=== PATIENT | male | born 1995 | race American Indian/Alaskan Native ===

== ENCOUNTER 2016-11-08 06:53 | Emergency (ER) | payer SELFPAY ==
[2016-11-08 07:32] LABS: Basophils % (Auto) 0.4 % (0.0-1.8); Hematocrit 40.8 % (35.5-45.6); Hemoglobin 14.2 gm/dl (11.8-15.2); Mean Corpuscular HGB Conc 35 % (32-34); Mean Corpuscular Hemoglobin 30 pg (28-32); Mean Corpuscular Volume 85 fl (84-94); Platelet Count 220 K/mm3 (140-440); Red Blood Count 4.77 M/mm3 (3.65-5.03); Red Cell Distribution Width 13.7 % (13.2-15.2); White Blood Count 6.9 K/mm3 (4.5-11.0)
[2016-11-08 07:57] LABS: Anion Gap 16 mmol/L; BUN/Creatinine Ratio 4.44; Blood Urea Nitrogen 4 mg/dL (9-20); Calcium 9.4 mg/dL (8.4-10.2); Carbon Dioxide 26 mmol/L (22-30); Chloride 101.3 mmol/L (98-107); Glucose 105 mg/dL (75-100); Potassium 3.7 mmol/L (3.6-5.0); Sodium 140 mmol/L (137-145)
--- NOTE | 2016-11-08 10:43 | Emergency Department Report ---
ED Chest Pain HPI - General Chief Complaint: Chest Pain Stated Complaint: NOSE BLEED/CHEST PAIN Time Seen by Provider: 11/08/16 10:40 Source: EMS Mode of arrival: Stretcher Limitations: No Limitations - History of Present Illness Initial Comments: The patient is a poor historian. He stated that she is that he's had some nosebleed and coughing for the past 2 days. He told me he had nonradiating chest pain which was associated with coughing up blood. He attributed this to pollen. He states he's had symptoms for 2 days. He is currently having no chest pain and no shortness of breath. He denies recent travel. He denies leg pain or swelling. He states he took his temperature twice at home once being 101 and another time being 103. He does have a history of schizophrenia. I do not know how reliable much of this information is. He tells me that he has been out of his Edoxaban for "a minute". He currently is unemployed and states he was unable to purchase any of his medicines. Patient has a history of methamphetamine abuse. He presented to the hospital in March 2016 in atrial flutter. He was seen by Denisse Villareal. He did have cough and chest pain at that time as well. He had a WILFREDO performed which showed "severe ventricular dysfunction bilaterally and a dilated cardiomyopathy with 4 chamber dilatation. He was placed then onto Xarelto metoprolol and amiodarone. He was thought to have a nonischemic cardiomyopathy. He was obviously counseled against IV drug abuse which apparently was the route of administration for his methamphetamine. He has not followed up with Denisse Bonilla since. MD Complaint: chest pain -: hour(s) Onset: during rest Severity scale (0 -10): 3 - Related Data Home Medications Medication Instructions Recorded Confirmed Last Taken Acetaminophen 325 mg PO QDAY PRN 03/11/16 03/11/16 Unknown Previous Rx's Medication Instructions Recorded Last Taken Type Potassium Chloride [K-Dur] 10 meq PO QDAY #5 tablet 03/16/14 Unknown Rx Benztropine [Cogentin] 0.5 mg PO BID #20 tab 05/14/15 Unknown Rx Amiodarone [Cordarone 200 MG TAB] 200 mg PO BID #60 tablet 03/20/16 Unknown Rx Digoxin [Lanoxin] 0.125 mg PO DAILY@1700 #30 tablet 08/10/16 Unknown Rx Edoxaban Tosylate [Savaysa] 60 mg PO DAILY #30 tablet 03/20/16 Unknown Rx Lisinopril [Zestril TAB] 5 mg PO QDAY #30 tablet 03/20/16 Unknown Rx Metoprolol [Lopressor TAB] 25 mg PO BID #60 tablet 03/20/16 Unknown Rx traMADol [Ultram 50 MG tab] 25 mg PO Q6HR PRN #15 tablet 03/20/16 Unknown Rx Allergies Allergy/AdvReac Type Severity Reaction Status Date / Time No Known Allergies Allergy Unverified 03/15/14 20:25 GE score - Ge Score Age > 65: (0) No Aspirin use within the Past 7 Days: (0) No 3 or more CAD Risk Factors: (0) No 2 or more Angina events in past 24 hrs: (0) No Known CAD with more than 50% Stenosis: (0) No Elevated Cardiac Markers: (0) No ST Deviation Greater than 0.5mm: (0) No GE Score: 0 ED Review of Systems ROS: Stated complaint: NOSE BLEED/CHEST PAIN Other details as noted in HPI ED Past Medical Hx - Past Medical History Hx Hypertension: No Hx Heart Attack/AMI: No Hx Congestive Heart Failure: No Hx Diabetes: No Hx Deep Vein Thrombosis: No Hx Seizures: No Hx Asthma: Yes (no problems since teenager) Hx COPD: No Hx HIV: No Additional medical history: A-flutter - Surgical History Hx Coronary Stent: No Hx Pacemaker: No Hx Internal Defibrillator: No - Social History Smoking Status: Never Smoker Substance Use Type: None - Medications Home Medications: Home Medications Medication Instructions Recorded Confirmed Last Taken Type Potassium Chloride [K-Dur] 10 meq PO QDAY #5 tablet 03/16/14 03/11/16 Unknown Rx Benztropine [Cogentin] 0.5 mg PO BID #20 tab 05/14/15 03/11/16 Unknown Rx Acetaminophen 325 mg PO QDAY PRN 03/11/16 03/11/16 Unknown History Amiodarone [Cordarone 200 MG TAB] 200 mg PO BID #60 tablet 03/20/16 Unknown Rx Digoxin [Lanoxin] 0.125 mg PO DAILY@1700 #30 tablet 03/20/16 Unknown Rx Edoxaban Tosylate [Savaysa] 60 mg PO DAILY #30 tablet 03/20/16 Unknown Rx Lisinopril [Zestril TAB] 5 mg PO QDAY #30 tablet 03/20/16 Unknown Rx Metoprolol [Lopressor TAB] 25 mg PO BID #60 tablet 03/20/16 Unknown Rx traMADol [Ultram 50 MG tab] 25 mg PO Q6HR PRN #15 tablet 03/20/16 Unknown Rx ED Physical Exam - General Limitations: No Limitations ED Course Vital Signs 11/08/16 11/08/16 07:15 07:23 Temperature 98.4 F Pulse Rate 87 Respiratory 18 18 Rate Blood Pressure 144/73 [Left] O2 Sat by Pulse 99 98 Oximetry ED Medical Decision Making - Lab Data Result diagrams: 11/08/16 07:22 11/08/16 07:22 Laboratory Results - last 24 hr 11/08/16 11/08/16 07:22 07:22 WBC 6.9 RBC 4.77 Hgb 14.2 Hct 40.8 MCV 85 MCH 30 MCHC 35 H RDW 13.7 Plt Count 220 Lymph % (Auto) 14.0 [place] % (Auto) 13.8 H Eos % (Auto) 6.0 H Baso % (Auto) 0.4 Lymph # 1.0 L [place] # 0.9 H Eos # 0.4 Baso # 0.0 Seg Neutrophils % 65.8 Seg Neutrophils # 4.5 Sodium 140 Potassium 3.7 Chloride 101.3 Carbon Dioxide 26 Anion Gap 16 BUN 4 L Creatinine 0.9 Estimated GFR > 60 BUN/Creatinine Ratio 4.44 Glucose 105 H Calcium 9.4 Troponin T < 0.010 - EKG Data -: EKG Interpreted by Me EKG shows normal: sinus rhythm Rate: normal - EKG Data Interpretation: other (right bundle-branch block normal axis nonspecific and secondary repolarization abnormality) Critical care attestation.: If time is entered above; I have spent that time in minutes in the direct care of this critically ill patient, excluding procedure time. ED Disposition Clinical Impression: Right bundle branch block, Cardiomyopathy Chest pain Qualifiers: Chest pain type: unspecified Qualified Code(s): R07.9 - Chest pain, unspecified Disposition: OP ADMITTED IP TO THIS HOSP Is pt being admited?: Yes Does the pt Need Aspirin: Yes Condition: Stable Instructions: Chest Pain (ED) Referrals: PRIMARY CARE, [Primary Care Provider] - 3-5 Days Time of Disposition: 13:23
--- NOTE | 2016-11-08 11:10 | XRay Report ---
Portable chest: Hypertension. There is a tiny nodule in the right upper lobe. It is smooth and round with no calcium. Review of prior exams appear to demonstrate that this nodule has been present previously but not as well demonstrated. The findings otherwise are unremarkable. Impression: Probably chronic right upper lobe nodule. Recommendation: Repeat chest in 4-6 months.
[2016-11-08] MEDS ORDERED: ZOFRAN IV ONE (11:26)
[2016-11-08] MEDS ORDERED: MORPHINE IV ONE (11:26)
[2016-11-08 11:34] LABS: INR 0.94 (0.87-1.13)
[2016-11-08 11:35] LABS: Partial Thromboplastin Time 27.7 Sec. (24.2-36.6)
[2016-11-08 11:56] LABS: Urine Drugs of Abuse Note Disclamer
[2016-11-08 12:03] LABS: Bilirubin,Urine NEG (Negative); Blood,Urine NEG (Negative); Ketones,Urine NEG (Negative); Leukocyte Esterase,Urine NEG (Negative); Mucus,Urine FEW /HPF; Nitrite,Urine NEG (Negative); Protein,Urine <15 mg/dL mg/dL (Negative); Urobilinogen,Urine < 2.0 mg/dL (<2.0)
[2016-11-08] MEDS ORDERED: ASPIRIN PO ONE (13:24)
--- NOTE | 2016-11-08 13:31 | Admit Criteria Form ---
Admission Criteria Documentation: CARDIOLOGY GRG Clinical Indications for Admission to Inpatient Care ( Place 'X' for any and all applicable criteria): Hospital admission is needed for appropriate care of the patient because of ANY ONE of the following (1): [ ] I. Hemodynamic instability as indicated by ALL of the following (1)(2)(3) (4)(5) [ ]a) Vital signs or other findings not as expected for chronic patient condition or baseline [ ]b) Instability indicated by ANY ONE of the following: [ ]i) Hypotension [ ]ii) Symptomatic Tachycardia unresponsive to treatment ( e.g., analgesia, fluids, sedation as indicated) [ ]iii) Inadequate perfusion indicated by ANY ONE of the following: [ ] 1) Lactic acidosis (> 2 mmol/L) [ ] 2) New abnormal capillary refill (> 3 seconds) [ ] 3) Reduced urine output [ ] 4) New altered mental status [ ]iv) Orthostatic vital sign changes unresponsive to treatment (e.g., fluids) [ ]v) IV inotropic or vasopressor medication required to maintain adequate blood pressure or perfusion [ ] II. Severe heart failure as indicated by ANY ONE of the following(17)(18) [ ]a) Respiratory distress [ ]b) Hypotension [ ]c) Anasarca (refractory to outpatient therapy) [ ]d) Cardiac arrhythmias of immediate concern [ ]e) Myocardial ischemia [ ] III. Cardiac arrhythmias or findings of immediate concern indicated by ANY ONE of the following (19)(20): [ ] a) Heart rhythms that are inherently dangerous or unstable indicated by ANY ONE of the following (21)(22)(23): [ ] i) Resuscitated ventricular fibrillation or cardiac arrest [ ] ii) Ventricular escape rhythm [ ] iii) Sustained ventricular tachycardia (30 seconds or more of ventricular rhythm at greater than 100 beats per minute) [ ] iv) Nonsustained ventricular tachycardia and ANY ONE of the following: [ ] 1) Suspected cardiac ischemia as cause or consequence of ventricular tachycardia [ ] 2) In setting of acute myocarditis [ ] b) Unstable cardiac conduction defects indicated by ANY ONE of the following(23)(24)(25) [ ] i) Type II second-degree atrioventricular block [ ]ii) Third-degree atrioventricular block [ ]iii) New-onset left bundle branch block with suspected myocardial ischemia [ ]c) Any heart rhythm and ANY ONE of the following (21)(22)(26)(27) (28) [ ] i) Continuous long-term ECG monitoring needed (e.g., initiation of drug requiring monitoring for more than 24 hours) [ ] ii) Patient has automatic implanted cardioverter defibrillator that is repeatedly firing, malfunctioning, or in need of immediate adjustment of settings beyond the scope of ambulatory or observation care [ ]d) Heart rhythms of concern due to ANY ONE of the following: [ ] i) Hypotension [ ] ii) Respiratory distress [ ] iii) Association with other significant symptoms (e.g., bradycardia with syncope or ongoing dizziness, supraventricular tachycardia with chest pain (14)(15)(17) [ ] IV. Monitoring for cardiac contusion beyond the scope of observation care needed [A](30)(31)(32) [ ] V. Surgical or device complication (e.g., valve replacement complication , pacemaker dysfunction) (35)(41)(44)(45)(46) [ ] . Inpatient palliative care needed. [B](49) Also use Inpatient Palliative Care Criteria [ ] VII. Nonbacterial thrombotic (marantic) endocarditis (36)(43)(47)(48) [X ] VIII. Cardiology condition, symptom, or finding for which emergency and observation care has failed or are not considered appropriate. [ ] IX. Acute valvular disease requiring inpatient as indicated by ANY ONE of the following (41) [ ]a) Acute valvular regurgitation (42) [ ]b) Noninfectious valvulitis (43) [ ]c) Obstructive valve thrombosis [ ]d) Paravalvular leak [ ]e) Other significant valvular disorder remaining after emergency or observation level of care (as appropriate) [ ]X. Pericardial disease requiring inpatient treatment as indicated by ANY ONE of the following (33)(34)(35)(36)(37) [ ]a) Suspected tamponade (38)(39)(40) [ ]b) Hemopericardium [ ]c) Other significant pericardial disorder remaining after emergency or observation level of care (as appropriate) [ ] XI. Cardiac ischemia beyond scope of emergency and observation care. [ ] XII. Hypertension requiring inpatient treatment as indicated by ANY ONE of the following (6)(7)(8) [ ]a) SBP greater than 220 mm Hg or DBP greater than 120 mmHg despite treatment [ ]b) SBP greater than 140 mm Hg or DBP greater than 100 mm Hg with evidence of acute end organ damage as indicated by ANY ONE of the following [ ] i) Altered mental status [ ] ii) Acute renal failure as indicated by new onset of ANY ONE of the following (9)(10)(11)(12)(13) [ ]1) 3-fold rise in serum creatinine from baseline [ ]2) Serum creatinine greater than 4 mg/dL ( 354 micromoles/L) with acute rise greater than 0.5 mg/dL (44.2 micromoles/L) [ ]3) Reduction of more than 75% in estimated glomerular filtration rate from baseline [ ]4) Estimated glomerular filtration rate less than 35 mL/min/1.73m2 (0.59 mL/sec/1.73m2) in child up to 18 years of age [ ]5) Cessation of urine output indicated by ALL of the following [ ]A. Adequate volume status [ ]B. Inadequate urine output as indicated by ANY ONE of the following [ ]a. Urine output less than 0.3 mL/kg/hr for 24 hours [ ]b. Anuria (urine output less than 0.1 mL/kg/hr) for 12 hours [ ] iii) Aortic dissection [ ] iv) Myocardial Ischemia [ ] v) Left ventricular heart failure [ ]vi) Retinal Hemorrhage [ ]vii) Other significant finding [ ]c) Hypertension in child requiring inpatient treatment as indicated by ALL of the following(14)(15)(16) [ ] i) Outpatient treatment not effective, not available, or not appropriate [ ]ii) SBP or DBP greater than 95th percentile for age [ ]iii) Evidence of acute end organ damage as indicated by ANY ONE of the following [ ]1) Altered mental status [ ]2) Acute renal failure as indicated by new onset of ANY ONE of the following(9)(10)(11)(12)(13) [ ]A. 3-fold rise in serum creatinine from baseline [ ]B. Serum creatinine greater than 4 mg/dL (354 micromoles/L) with acute rise greater than 0.5 mg/dL (44.2 micromoles/L) [ ]C. Reduction of more than 75% in estimated glomerular filtration rate from baseline [ ]D. Estimated glomerular filtration rate less than 35 mL/min/1.73m2 (0.59 mL/sec/1.73m2) in child up to 18 years of age [ ]E. Cessation of urine output indicated by ALL of the following [ ]a. Adequate volume status [ ]b. Inadequate urine output as indicated by ANY ONE of the following [ ]i) Urine output less than 0.3 mL/kg/hr for 24 hours [ ]ii) Anuria ( urine output less than 0.1 mL/kg/hr) for 12 hours [ ]3) Severe headache [ ]4) Visual disturbance [ ]5) Retinal hemorrhage [ ]6) Other significant finding [ ]XIII. Complications of transplanted heart indicated by ANY ONE of the following(61): [ ]a) Acute graft rejection requiring inpatient management (eg, intravenous immunosuppression)(62)(63) [ ]b) Acute graft heart failure indicated by ANY ONE of the following(64): [ ]i) Hemodynamic instability [ ]ii) Cardiac arrhythmias of immediate concern [ ]iii) Pulmonary edema that is very severe (eg, mechanical ventilation needed, imminent or likely, need for 100% oxygen to keep oxygen saturation above 90%) [ ]iv) Pulmonary edema that is persistent as indicated by ALL of the following: [ ]1) New need for oxygen therapy to keep oxygen saturation above 90% (or increased FiO2 need from baseline) [ ]2) Has not improved sufficiently with emergency department or observation care IV diuretics or other heart failure treatments[E] [ ]v) Altered mental status that is severe or persistent [ ]vi) Increased creatinine (new on laboratory test) with reduction of more than 50% in estimated glomerular filtration rate from baseline [ ]vii) Progressively (ongoing) rising creatinine (known from past laboratory test) with reduction of more than 25% in estimated glomerular filtration rate from baseline [ ]viii) Acute renal failure [ ]ix) Acute peripheral ischemia (eg, examination shows pulseless, cool, mottled, or cyanotic extremity) [ ]x) Pulmonary artery catheter monitoring needed [ ]xi) Other sign or symptom of heart failure requiring inpatient treatment (ie, too severe or not responsive to outpatient and observation care treatment) [ ]c) Infection requiring inpatient management (eg, Hemodynamic instability, need for intravenous antimicrobial treatment)(66)(67)(68)(69)(70) [ ]d) Cardiac allograft vasculopathy requiring inpatient management ( eg evidence of cardiac ischemia)(71) [ ]e) Other complication of transplanted heart (eg, stroke, severe pulmonary hypertension, severe valvular dysfunction) requiring inpatient management(72) The original [facility] content created by [facility] has been revised. The portions of the content which have been revised are identified through the use of italic text or in bold, and [facility] has neither reviewed nor approved the modified material. All other unmodified content is copyright [facility]. Please see references footnoted in the original [facility] edition 2016 Admission Criteria Met: Yes
--- NOTE | 2016-11-08 13:39 | Consultation ---
History of Present Illness - Reason for Consult Requesting physician: ODALYS JACKSON - History of Present Illness 21 YO Male with Atrial Fib, Asthma presents to ED for evaluation. Pt states that he has experienced a sore throat for the past several days and now has pain in the back of his throat when he swallows. Pt denies fever, chills, Palpitations, NVD, or CP. Pt denies any recent ill contacts, skin rashes, hematemesis, or recent foreign travel, unintentional weight loss, or night sweats. Past History Past Medical History: arrhythmia Past Surgical History: No surgical history, Other (reviewed) Social history: single. denies: smoking, alcohol abuse, prescription drug abuse Family history: hypertension Medications and Allergies Allergies Allergy/AdvReac Type Severity Reaction Status Date / Time No Known Allergies Allergy Unverified 03/15/14 20:25 Home Medications Medication Instructions Recorded Confirmed Last Taken Type Potassium Chloride [K-Dur] 10 meq PO QDAY #5 tablet 03/16/14 03/11/16 Unknown Rx Benztropine [Cogentin] 0.5 mg PO BID #20 tab 05/14/15 03/11/16 Unknown Rx Acetaminophen 325 mg PO QDAY PRN 03/11/16 03/11/16 Unknown History Amiodarone [Cordarone 200 MG TAB] 200 mg PO BID #60 tablet 03/20/16 Unknown Rx Digoxin [Lanoxin] 0.125 mg PO DAILY@1700 #30 tablet 03/20/16 Unknown Rx Edoxaban Tosylate [Savaysa] 60 mg PO DAILY #30 tablet 03/20/16 Unknown Rx Lisinopril [Zestril TAB] 5 mg PO QDAY #30 tablet 03/20/16 Unknown Rx Metoprolol [Lopressor TAB] 25 mg PO BID #60 tablet 03/20/16 Unknown Rx traMADol [Ultram 50 MG tab] 25 mg PO Q6HR PRN #15 tablet 03/20/16 Unknown Rx Amoxicillin [Amoxicillin TAB] 875 mg PO BID #14 tablet 11/08/16 Unknown Rx Dextromethorphan HBr/B-Chris 1 each PO TID #21 lozenge 11/08/16 Unknown Rx [Cepacol Sorethroat-Cough April] Review of Systems All systems: negative Ears, nose, mouth and throat: sore throat, post-nasal drip Exam - Constitutional Vitals: Temp Pulse Resp BP Pulse Ox 98.4 F 87 18 144/73 98 11/08/16 07:23 11/08/16 07:23 11/08/16 07:23 11/08/16 07:23 11/08/16 07:23 General appearance: Present: no acute distress, well-nourished - EENT Eyes: Present: PERRL ENT: hearing intact, clear oral mucosa - Neck Neck: Present: supple, normal ROM, cervical LAD - Respiratory Respiratory effort: normal Respiratory: bilateral: CTA - Cardiovascular Heart Sounds: Present: S1 & S2. Absent: rub, click - Extremities Extremities: pulses symmetrical, No edema Peripheral Pulses: within normal limits - Abdominal General gastrointestinal: Present: soft, non-tender, non-distended, normal bowel sounds Male genitourinary: Present: normal - Integumentary Integumentary: Present: clear, warm, dry - Musculoskeletal Musculoskeletal: gait normal, strength equal bilaterally - Psychiatric Psychiatric: appropriate mood/affect, intact judgment & insight - Neurologic Neurologic: CNII-XII intact, moves all extremities Results - Labs CBC & Chem 7: 11/08/16 07:22 11/08/16 07:22 Labs: Abnormal lab results 11/08/16 11/08/16 Range/Units 07:22 07:22 MCHC 35 H (32-34) % [place] % (Auto) 13.8 H (0.0-7.3) % Eos % (Auto) 6.0 H (0.0-4.3) % Lymph # 1.0 L (1.2-5.4) K/mm3 [place] # 0.9 H (0.0-0.8) K/mm3 BUN 4 L (9-20) mg/dL Glucose 105 H (75-100) mg/dL Assessment and Plan - Patient Problems (1) Atypical chest pain Current Visit: Yes Status: Acute Plan to address problem: Serial cardiac enzymes, ekg, telemetry, D dimer unremarkable (2) Pharyngitis Current Visit: Yes Status: Acute Qualifiers: Pharyngitis/tonsillitis etiology: P Plan to address problem: Oral abx, cepacol throat lozenges (3) Atrial flutter Current Visit: Yes Status: Chronic Qualifiers: Atrial flutter type: A Plan to address problem: Rate controlled, currently NSR. Pt to f/u cardiology 1wk for f/u care
[2016-11-08 13:53] VITALS: BP 144/74
== END 2016-11-08 13:53 | disposition admitted as inpatient to this hospital (09) ==
LOC: ED 06:53
DX: I45.10 Unspecified right bundle-branch block (principal); I42.9 Cardiomyopathy, unspecified; J45.909 Unspecified asthma, uncomplicated
CPT/HCPCS: 36415; 71010; 80048; 80307; 81001; 83880; 84484; 85025; 85379; 85610; 85730; 93005; 93010; 99285

== ENCOUNTER 2017-09-09 14:02 | Emergency (ER) | payer SELFPAY ==
[2017-09-09 14:40] VITALS: BP 141/57
--- NOTE | 2017-09-09 15:07 | XRay Report ---
AP CHEST: HISTORY: chest pain AP view of the chest demonstrates a normal mediastinal and cardiac contour with clear lungs and normal bony and soft tissue structures. IMPRESSION: Unremarkable AP chest.
[2017-09-09 15:21] LABS: BUN/Creatinine Ratio 9; Blood Urea Nitrogen 7 mg/dL (9-20); Calcium 9.9 mg/dL (8.4-10.2); Hemolysis Index 4
[2017-09-09 15:27] LABS: Basophils # (Auto) 0.1 K/mm3 (0.0-0.1); Basophils % (Auto) 0.8 % (0.0-1.8); Eosinophils # (Auto) 0.1 K/mm3 (0.0-0.4); Eosinophils % (Auto) 0.4 % (0.0-4.3); Hemoglobin 15.1 gm/dl (11.8-15.2); Lymphocytes # (Auto) 1.8 K/mm3 (1.2-5.4); Lymphocytes % (Auto) 12.1 % (13.4-35.0); Mean Corpuscular HGB Conc 34 % (32-34); Mean Corpuscular Hemoglobin 29 pg (28-32); Mean Corpuscular Volume 87 fl (84-94); Monocytes # (Auto) 0.8 K/mm3 (0.0-0.8); Monocytes % (Auto) 5.6 % (0.0-7.3); Platelet Count 315 K/mm3 (140-440); Red Blood Count 5.18 M/mm3 (3.65-5.03); Red Cell Distribution Width 13.6 % (13.2-15.2)
== END 2017-09-09 15:00 | disposition left against medical advice (07) ==
LOC: ED 14:02
DX: R07.9 Chest pain, unspecified (principal); Z53.21 Procedure and treatment not carried out due to patient leaving prior to being seen by health care provider
CPT/HCPCS: 36415; 71045; 80048; 84484; 85025; 93005; 93010

== ENCOUNTER 2018-05-04 21:26 | Emergency (ER) | payer SELFPAY ==
[2018-05-04 22:21] VITALS: BP 123/56
[2018-05-04] MEDS ORDERED: ASPIRIN PO ONE (22:29)
[2018-05-04 22:58] LABS: Basophils # (Auto) 0.1 K/mm3 (0.0-0.1); Basophils % (Auto) 1.4 % (0.0-1.8); Eosinophils # (Auto) 0.3 K/mm3 (0.0-0.4); Eosinophils % (Auto) 3.6 % (0.0-4.3); Hematocrit 43.2 % (35.5-45.6); Hemoglobin 14.6 gm/dl (11.8-15.2); Lymphocytes # (Auto) 2.1 K/mm3 (1.2-5.4); Lymphocytes % (Auto) 22.6 % (13.4-35.0); Mean Corpuscular HGB Conc 34 % (32-34); Mean Corpuscular Hemoglobin 30 pg (28-32); Mean Corpuscular Volume 88 fl (84-94); Monocytes # (Auto) 0.7 K/mm3 (0.0-0.8); Monocytes % (Auto) 7.8 % (0.0-7.3); Platelet Count 268 K/mm3 (140-440); Red Blood Count 4.91 M/mm3 (3.65-5.03); Red Cell Distribution Width 13.8 % (13.2-15.2)
[2018-05-04 23:16] LABS: BUN/Creatinine Ratio 11; Blood Urea Nitrogen 9 mg/dL (9-20); Calcium 9.8 mg/dL (8.4-10.2); Hemolysis Index 9
== END 2018-05-05 04:15 | disposition left against medical advice (07) ==
LOC: ED 21:26
DX: R55 Syncope and collapse (principal); Z53.21 Procedure and treatment not carried out due to patient leaving prior to being seen by health care provider
CPT/HCPCS: 36415; 80048; 84484; 85025; 93005; 93010; G0480; 80320

== ENCOUNTER 2018-11-11 06:21 | Emergency (ER) | payer OTHER ==
[2018-11-11] MEDS ORDERED: DILAUDID IV ONE (07:09)
[2018-11-11] MEDS ORDERED: BENADRYL IV ONE (07:09)
[2018-11-11] MEDS ORDERED: ZOFRAN IV ONE (07:09)
[2018-11-11 08:07] LABS: Basophils # (Auto) 0.1 K/mm3 (0.0-0.1); Basophils % (Auto) 1.4 % (0.0-1.8); Eosinophils # (Auto) 0.3 K/mm3 (0.0-0.4); Eosinophils % (Auto) 3.7 % (0.0-4.3); Hematocrit 44.1 % (35.5-45.6); Hemoglobin 15.4 gm/dl (11.8-15.2); Lymphocytes # (Auto) 1.8 K/mm3 (1.2-5.4); Lymphocytes % (Auto) 26.2 % (13.4-35.0); Mean Corpuscular HGB Conc 35 % (32-34); Mean Corpuscular Volume 87 fl (84-94); Monocytes # (Auto) 0.8 K/mm3 (0.0-0.8); Platelet Count 278 K/mm3 (140-440); Red Blood Count 5.06 M/mm3 (3.65-5.03); Red Cell Distribution Width 14.4 % (13.2-15.2)
--- NOTE | 2018-11-11 08:08 | Ultrasound Report ---
PROCEDURE: US TESTICULAR DOPPLER COMP TECHNIQUE: Grayscale, color Doppler and spectral ultrasound evaluation of the testicles HISTORY: R testicular pain COMPARISONS: None FINDINGS: Grayscale, color and spectral Doppler ultrasound evaluation of the testicles The right testicle measures 3.3 x 1.6 x 2.8 cm and demonstrates normal echotexture and color and spec tral Doppler evaluation. The epididymis is within normal limits. A couple of cystic areas in the epi didymis measure up to 8 mm. No varicocele identified. No intra or extra testicular mass. Trace hydroc dale. The left testicle measures 4 x 1.6 x 3.1 cm and demonstrates normal echo texture and color and spectr al Doppler evaluation. The epididymis is within normal limits. No intra or extra testicular mass. Trace hydrocele. No varicocele. IMPRESSION: No acute intra or extratesticular findings. This document is electronically signed by Tono Medel MD., November 11 2018 08:06:25 AM ET
[2018-11-11 08:19] LABS: INR 0.87 (0.87-1.13); Partial Thromboplastin Time 20.9 Sec. (24.2-36.6)
[2018-11-11 08:30] LABS: BUN/Creatinine Ratio 14; Blood Urea Nitrogen 11 mg/dL (9-20); Calcium 9.6 mg/dL (8.4-10.2); Hemolysis Index 38
[2018-11-11 08:33] LABS: Alanine Aminotransferase 17 units/L (7-56); Albumin 4.4 g/dL (3.9-5)
--- NOTE | 2018-11-11 08:35 | Emergency Department Report ---
ED General Adult HPI - General Chief complaint: Urogenital-Male Stated complaint: GROIN PAIN Time Seen by Provider: 11/11/18 07:01 Source: patient Mode of arrival: Ambulatory Limitations: No Limitations - History of Present Illness Initial comments: This is a 23-year-old male that states that he's had pain in his right testicle between 4 and 5 yesterday. States the pain is dark but nonradiating. He states that he has some chronic lower back pain which is unrelated. He did some lifting yesterday as he is moving his residence. He denies any urinary symptoms. He said no fever or chills. He states he has not had this type of pain before which is a persistent dull ache. -: Gradual, hour(s) Location: right (testicle) Radiation: non-radiation Severity scale (0 -10): 7 Quality: aching Consistency: constant Worsens with: movement Associated Symptoms: denies other symptoms Treatments Prior to Arrival: none - Related Data Home Medications Medication Instructions Recorded Confirmed Last Taken Acetaminophen 325 mg PO QDAY PRN 03/11/16 03/11/16 Unknown Previous Rx's Medication Instructions Recorded Last Taken Type Potassium Chloride [K-Dur] 10 meq PO QDAY #5 tablet 03/16/14 Unknown Rx Benztropine [Cogentin] 0.5 mg PO BID #20 tab 05/14/15 Unknown Rx Amiodarone [Cordarone 200 MG TAB] 200 mg PO BID #60 tablet 03/20/16 Unknown Rx Digoxin [Lanoxin] 0.125 mg PO DAILY@1700 #30 tablet 03/20/16 Unknown Rx Edoxaban Tosylate [Savaysa] 60 mg PO DAILY #30 tablet 03/20/16 Unknown Rx Lisinopril [Zestril TAB] 5 mg PO QDAY #30 tablet 03/20/16 Unknown Rx Metoprolol [Lopressor TAB] 25 mg PO BID #60 tablet 03/20/16 Unknown Rx traMADol [Ultram 50 MG tab] 25 mg PO Q6HR PRN #15 tablet 03/20/16 Unknown Rx Amoxicillin [Amoxicillin TAB] 875 mg PO BID #14 tablet 11/08/16 Unknown Rx Dextromethorphan/Benzocaine 1 each PO TID #21 lozenge 11/08/16 Unknown Rx [Cepacol Sorethroat-Cough April] Allergies Allergy/AdvReac Type Severity Reaction Status Date / Time No Known Allergies Allergy Verified 11/11/18 06:26 ED Review of Systems ROS: Stated complaint: GROIN PAIN Other details as noted in HPI Constitutional: denies: chills, fever Eyes: denies: eye pain, eye discharge, vision change ENT: denies: ear pain, throat pain Respiratory: denies: cough, shortness of breath, wheezing Cardiovascular: denies: chest pain, palpitations Endocrine: no symptoms reported Gastrointestinal: denies: abdominal pain, nausea, diarrhea Genitourinary: as per HPI, testicular pain. denies: urgency, dysuria Musculoskeletal: denies: back pain, joint swelling, arthralgia Skin: denies: rash, lesions Neurological: denies: headache, weakness, paresthesias Psychiatric: denies: anxiety, depression Hematological/Lymphatic: denies: easy bleeding, easy bruising ED Past Medical Hx - Past Medical History Previous Medical History?: Yes Hx Hypertension: No Hx Heart Attack/AMI: No Hx Congestive Heart Failure: No Hx Diabetes: No Hx Deep Vein Thrombosis: No Hx Seizures: No Hx Asthma: Yes (no problems since teenager) Hx COPD: No Hx HIV: No Additional medical history: A-flutter - Surgical History Past Surgical History?: No Hx Coronary Stent: No Hx Pacemaker: No Hx Internal Defibrillator: No - Social History Smoking Status: Never Smoker Substance Use Type: None - Medications Home Medications: Home Medications Medication Instructions Recorded Confirmed Last Taken Type Potassium Chloride [K-Dur] 10 meq PO QDAY #5 tablet 03/16/14 03/11/16 Unknown Rx Benztropine [Cogentin] 0.5 mg PO BID #20 tab 05/14/15 03/11/16 Unknown Rx Acetaminophen 325 mg PO QDAY PRN 03/11/16 03/11/16 Unknown History Amiodarone [Cordarone 200 MG TAB] 200 mg PO BID #60 tablet 03/20/16 Unknown Rx Digoxin [Lanoxin] 0.125 mg PO DAILY@1700 #30 tablet 03/20/16 Unknown Rx Edoxaban Tosylate [Savaysa] 60 mg PO DAILY #30 tablet 03/20/16 Unknown Rx Lisinopril [Zestril TAB] 5 mg PO QDAY #30 tablet 03/20/16 Unknown Rx Metoprolol [Lopressor TAB] 25 mg PO BID #60 tablet 03/20/16 Unknown Rx traMADol [Ultram 50 MG tab] 25 mg PO Q6HR PRN #15 tablet 03/20/16 Unknown Rx Amoxicillin [Amoxicillin TAB] 875 mg PO BID #14 tablet 11/08/16 Unknown Rx Dextromethorphan/Benzocaine 1 each PO TID #21 lozenge 11/08/16 Unknown Rx [Cepacol Sorethroat-Cough April] ED Physical Exam - General Limitations: Other (poorly cooperative) General appearance: alert, in no apparent distress - Head Head exam: Present: atraumatic, normocephalic - Eye Eye exam: Present: normal appearance. Absent: scleral icterus - ENT ENT exam: Present: mucous membranes moist - Neck Neck exam: Present: normal inspection. Absent: tenderness, meningismus - Respiratory Respiratory exam: Present: normal lung sounds bilaterally. Absent: respiratory distress - Cardiovascular Cardiovascular Exam: Present: regular rate, normal rhythm. Absent: systolic murmur, diastolic murmur, rubs, gallop - GI/Abdominal GI/Abdominal exam: Present: soft, normal bowel sounds. Absent: distended, tenderness, guarding, rebound, rigid, organomegaly, mass, bruit, pulsatile mass, hernia - Rectal Rectal exam: Present: deferred - exam: Present: normal inspection, circumcision. Absent: testicular tenderness, urethral discharge, scrotal swelling, vertical testicular lie - Extremities Exam Extremities exam: Present: normal inspection - Back Exam Back exam: Present: normal inspection - Neurological Exam Neurological exam: Present: alert, oriented X3, CN II-XII intact. Absent: motor sensory deficit - Psychiatric Psychiatric exam: Present: normal affect, normal mood - Skin Skin exam: Present: warm, dry, intact, normal color. Absent: rash ED Course Vital Signs 11/11/18 07:07 Respiratory 20 Rate O2 Sat by Pulse 98 Oximetry - Reevaluation(s) Reevaluation #1: The patient was sent for an emergency ultrasound which was negative per radiologist. He told the nurse that he had to go to jury duty and never rece ived any medications (analgesia). He was advised that his diagnosis was uncertain and that further testing was pending. Nonetheless, he signed out AGAINST MEDICAL ADVICE. 11/11/18 08:33 ED Medical Decision Making - Lab Data Result diagrams: 11/11/18 08:01 11/11/18 08:01 Critical care attestation.: If time is entered above; I have spent that time in minutes in the direct care of this critically ill patient, excluding procedure time. ED Disposition Clinical Impression: Right testicular pain Disposition: DC-07 LEFT AGAINST MED ADVICE Is pt being admited?: No Does the pt Need Aspirin: No Condition: Stable Referrals: ROSIO LANDRY MD [Primary Care Provider] - 3-5 Days Time of Disposition: 08:34
[2018-11-11 08:37] LABS: Bilirubin,Direct < 0.2 mg/dL (0-0.2)
== END 2018-11-11 08:40 | disposition left against medical advice (07) ==
LOC: ED 06:21
DX: N50.811 Right testicular pain (principal); J45.909 Unspecified asthma, uncomplicated
CPT/HCPCS: 36415; 80048; 80076; 85025; 85610; 85730; 93975; 99284; J1170; J1200; J2405

== ENCOUNTER 2019-01-08 10:30 | Emergency (ER) | payer SELFPAY ==
[2019-01-08 10:40] VITALS: BP 127/61
[2019-01-08] MEDS ORDERED: IBUPROFEN PO ONE (11:21)
--- NOTE | 2019-01-08 11:25 | Emergency Department Report ---
ED Upper Extremity Inj HPI - General Chief Complaint: Extremity Injury, Upper Stated Complaint: R WRIST SPRAINED Time Seen by Provider: 01/08/19 11:06 Source: patient Mode of arrival: Ambulatory Limitations: No Limitations - History of Present Illness Initial Comments: Mr. Gutiérrez presents with right wrist injury. 2 weeks ago he fell onto outstretched hand during a fall at home. Has a history of chronic wrist pain due to previous fracture several years ago. [id number] pain. Improved with Tylenol. Complaint: Injury to:: right, wrist -: Gradual, week(s) (2) Other Extremity Injury: Fingers: Right, Wrist: Right Other Injuries: none Place: home Worsens With: immobilization Context: fall - Related Data Home Medications Medication Instructions Recorded Confirmed Last Taken Acetaminophen 325 mg PO QDAY PRN 03/11/16 03/11/16 Unknown Previous Rx's Medication Instructions Recorded Last Taken Type Potassium Chloride [K-Dur] 10 meq PO QDAY #5 tablet 03/16/14 Unknown Rx Benztropine [Cogentin] 0.5 mg PO BID #20 tab 05/14/15 Unknown Rx Amiodarone [Cordarone 200 MG TAB] 200 mg PO BID #60 tablet 03/20/16 Unknown Rx Digoxin [Lanoxin] 0.125 mg PO DAILY@1700 #30 tablet 03/20/16 Unknown Rx Edoxaban Tosylate [Savaysa] 60 mg PO DAILY #30 tablet 03/20/16 Unknown Rx Lisinopril [Zestril TAB] 5 mg PO QDAY #30 tablet 03/20/16 Unknown Rx Metoprolol [Lopressor TAB] 25 mg PO BID #60 tablet 03/20/16 Unknown Rx traMADol [Ultram 50 MG tab] 25 mg PO Q6HR PRN #15 tablet 03/20/16 Unknown Rx Amoxicillin [Amoxicillin TAB] 875 mg PO BID #14 tablet 11/08/16 Unknown Rx Dextromethorphan/Benzocaine 1 each PO TID #21 lozenge 11/08/16 Unknown Rx [Cepacol Sorethroat-Cough April] Allergies Allergy/AdvReac Type Severity Reaction Status Date / Time No Known Allergies Allergy Verified 11/11/18 06:26 ED Review of Systems ROS: Stated complaint: R WRIST SPRAINED Other details as noted in HPI ED Past Medical Hx - Past Medical History Previous Medical History?: Yes Hx Hypertension: No Hx Heart Attack/AMI: No Hx Congestive Heart Failure: No Hx Diabetes: No Hx Deep Vein Thrombosis: No Hx Seizures: No Hx Asthma: Yes (no problems since teenager) Hx COPD: No Hx HIV: No Additional medical history: A-flutter - Surgical History Past Surgical History?: No Hx Coronary Stent: No Hx Pacemaker: No Hx Internal Defibrillator: No - Social History Smoking Status: Never Smoker Substance Use Type: None - Medications Home Medications: Home Medications Medication Instructions Recorded Confirmed Last Taken Type Potassium Chloride [K-Dur] 10 meq PO QDAY #5 tablet 03/16/14 03/11/16 Unknown Rx Benztropine [Cogentin] 0.5 mg PO BID #20 tab 05/14/15 03/11/16 Unknown Rx Acetaminophen 325 mg PO QDAY PRN 03/11/16 03/11/16 Unknown History Amiodarone [Cordarone 200 MG TAB] 200 mg PO BID #60 tablet 03/20/16 Unknown Rx Digoxin [Lanoxin] 0.125 mg PO DAILY@1700 #30 tablet 03/20/16 Unknown Rx Edoxaban Tosylate [Savaysa] 60 mg PO DAILY #30 tablet 03/20/16 Unknown Rx Lisinopril [Zestril TAB] 5 mg PO QDAY #30 tablet 03/20/16 Unknown Rx Metoprolol [Lopressor TAB] 25 mg PO BID #60 tablet 03/20/16 Unknown Rx traMADol [Ultram 50 MG tab] 25 mg PO Q6HR PRN #15 tablet 03/20/16 Unknown Rx Amoxicillin [Amoxicillin TAB] 875 mg PO BID #14 tablet 11/08/16 Unknown Rx Dextromethorphan/Benzocaine 1 each PO TID #21 lozenge 11/08/16 Unknown Rx [Cepacol Sorethroat-Cough April] ED Physical Exam - General Limitations: No Limitations General appearance: alert, in no apparent distress - Head Head exam: Present: atraumatic, normocephalic - Eye Eye exam: Absent: scleral icterus - Respiratory Respiratory exam: Absent: respiratory distress - Expanded Upper Extremity Exam Right Elbow exam: Present: normal inspection, full ROM. Absent: tenderness Forearm Wrist exam: Present: normal inspection, full ROM, tenderness. Absent: swelling, abrasion, laceration ED Course Vital Signs 01/08/19 10:38 Temperature 97.5 F L Pulse Rate 80 Respiratory 18 Rate Blood Pressure 127/61 [Right] O2 Sat by Pulse 99 Oximetry ED Medical Decision Making - Radiology Data Radiology results: report reviewed, image reviewed - Medical Decision Making Mr. Gutiérrez presents with right wrist sprain. Lucas wrap placed by nursing staff under my supervision. After placement. Extremity was neurovascularly intact with appropriate alignment. Recommended restand [id number] NSAIDs. Critical care attestation.: If time is entered above; I have spent that time in minutes in the direct care of this critically ill patient, excluding procedure time. ED Disposition Clinical Impression: Right wrist sprain Disposition: DC-01 TO HOME OR SELFCARE Is pt being admited?: No Does the pt Need Aspirin: No Condition: Stable Instructions: Wrist Sprain (ED) Referrals: SATINDER PHILLIPS MD [Staff Physician] - as needed
--- NOTE | 2019-01-08 11:52 | XRay Report ---
RIGHT WRIST, 4 VIEWS: History: Right wrist pain. Routine views demonstrate the carpal bones to be well mineralized with well preserved bony mineralization and interosseous joint spaces. The carpal and adjacent articular bones have normal contours. The surrounding soft tissues are unremarkable. IMPRESSION: Unremarkable right wrist.
== END 2019-01-08 12:29 | disposition home or self-care (01) ==
LOC: ED 10:30
DX: S63.501A Unspecified sprain of right wrist, initial encounter (principal); J45.909 Unspecified asthma, uncomplicated; Z79.899 Other long term (current) drug therapy; W18.30XA Fall on same level, unspecified, initial encounter; Y93.89 Activity, other specified; Y92.099 Unspecified place in other non-institutional residence as the place of occurrence of the external cause; Y99.8 Other external cause status
CPT/HCPCS: 99283

== ENCOUNTER 2020-08-02 07:38 | Emergency (ER) | payer SELFPAY ==
[2020-08-02 07:47] VITALS: BP 124/51
== END 2020-08-02 09:44 | disposition left against medical advice (07) ==
LOC: ED 07:38
DX: R11.10 Vomiting, unspecified (principal); Z53.21 Procedure and treatment not carried out due to patient leaving prior to being seen by health care provider
CPT/HCPCS: 93005